=== PATIENT | male | born 1985 | race Caucasian/White ===

== ENCOUNTER 2017-11-21 00:54 | Emergency (ER) | payer OTHER ==
[~2017-11-21] VITALS: Ht 177.8 cm; Wt 76.3 kg
[~2017-11-21 00:54] MED LIST: AMOXICILLIN500 M1 PO; CLINDAMYCIN HC300 MG PO; ENDOCET 10-3251 EACH PO; FIORICET,ESG1 TABLET PO; FLEXERIL10 MG PO; IBUPROFEN800 MG PO; LORTAB 5-325 M1 EACH PO; LYRICA100 MG PO; MOBIC7.5 MG PO; MORPHINE SULFAT15 M1 PO; MOTRIN600 MG PO; MS CONTIN,ORAMO15 M1 PO; NAPROSYN500 MG PO; NO MEDS; NO MEDS.; NOHOMEMEDS; NORCO 5/3251 TABLET PO; OXYCODONE HCL10 MG PO; PREDNISONE10 MG PO; TESSALON200 MG PO; TORADOL10 MG PO
[2017-11-21] MEDS ORDERED: PEN-VEE K,VEET500 MG PO (01:36)
[2017-11-21] MEDS ORDERED: PERCOCET 5/31 TABLET PO (01:41)
[2017-11-21 02:04] VITALS: BP 133/67
== END 2017-11-21 02:05 | disposition home or self-care (01) ==
LOC: EME 00:54
DX: K04.7 Periapical abscess without sinus (principal); K02.9 Dental caries, unspecified; F17.200 Nicotine dependence, unspecified, uncomplicated; Z88.5 Allergy status to narcotic agent; Z88.8 Allergy status to other drugs, medicaments and biological substances
CPT/HCPCS: 99281; 99283

== ENCOUNTER 2018-04-05 15:59 | Emergency (ER) | payer OTHER ==
[~2018-04-05] VITALS: Ht 177.8 cm; Wt 72.3 kg
[~2018-04-05 15:59] MED LIST changes: +PEN-VEE K,VEET500 MG PO; +PERCOCET 5/31 TABLET PO
[2018-04-05 17:26] VITALS: BP 130/78
== END 2018-04-05 17:28 | disposition home or self-care (01) ==
LOC: EME 15:59
DX: S90.425A Blister (nonthermal), left lesser toe(s), initial encounter (principal); X58.XXXA Exposure to other specified factors, initial encounter; Y99.0 Civilian activity done for income or pay; M79.672 Pain in left foot; F17.200 Nicotine dependence, unspecified, uncomplicated
CPT/HCPCS: 99281; 99283